=== PATIENT | female | born 1995 | race African-American/Black ===

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

== ENCOUNTER 2017-01-02 19:35 | Emergency (ER) | payer OTHER ==
[2017-01-02] MEDS ORDERED: Acetaminophen/Codeine 30-300mg Tablet ONE ×2 (19:53)
[2017-01-02 20:10] LABS: Pregnancy Test - Urine (BHCG) Negative (Negative); Pregu Control Background? CLEAR/WHITE (CLR/WHITE); Pregu Control Bar Appear? YES (CONTROL BAR)
== END 2017-01-02 20:24 | disposition home or self-care (01) ==
LOC: MADERS 19:35
DX: N92.0 Excessive and frequent menstruation with regular cycle (principal)
CPT/HCPCS: 81025; 99284

== ENCOUNTER 2017-01-03 21:27 | Emergency (ER) | payer OTHER ==
[~2017-01-03 21:27] MED LIST: Sodium Chloride 0.9% 1,000 ML BAG ONE
[2017-01-03] MEDS ORDERED: Ondansetron ODT 4 MG TAB ONE (21:44)
[2017-01-03 23:12] LABS: ALT (SGPT) 8 U/L (8-55); AST (SGOT) 23 U/L (5-30); Albumin 3.6 g/dL (3.5-5.0); Alkaline Phosphatase 63 U/L (40-150); Anion Gap 14 mmol/L (10-20); BUN (Urea Nitrogen) 11 mg/dL (8.4-21.0); Bilirubin, Total 0.3 mg/dL (0.2-1.2); Calc. Creatinine Clearance 0 mL/min (70-130); Calcium 8.4 mg/dL (7.8-10.44); Carbon Dioxide 20 mmol/L (22-29); Chloride 109 mmol/L (98-107); Estimated GFR-MDRD Greater than 90; Globulin 3.2 g/dL (2.4-3.5); Glucose 82 mg/dL (70-105); Lipase 17 U/L (8-78); Potassium 3.7 mmol/L (3.5-5.1); Protein, Total 6.8 g/dL (6.0-8.3); Sodium 139 mmol/L (136-145)
[2017-01-03] MEDS ORDERED: Promethazine HCl 25 MG/ML VIAL ONE (23:34)
[2017-01-03 23:36] LABS: Hemoglobin 6.7 g/dL (12.0-16.0); Mean Corpuscular HGB CONC 29.3 g/dL (32.0-36.0); Mean Corpuscular Hemoglobin 17.2 pg (25.0-35.0); Mean Corpuscular Volume 58.7 fL (77.0-87.0); Red Blood Cell (RBC) Count 3.91 mill/uL (4.00-5.20)
[2017-01-03 23:37] LABS: #Basophils 0.1 thou/uL (0.0-0.2); #Eosinphils 0.1 thou/uL (0.0-0.7); #Lymphocytes 2.2 thou/uL (1.20-3.40); #Monocytes 0.6 thou/uL (0.11-0.59); %Basophils 1.4 % (0.0-1.0); %Eosinophils 1.2 % (0.0-10.0); %Lymphocytes 27.1 % (28.0-48.0); %Monocytes 7.5 % (0.0-4.0); %Neutrophils 62.8 % (31.0-61.0); Anisocytosis MARKED = >30 cells (100X) (0-5/hpf); Mean Platelet Volume 8.8 fL (7.4-10.4); Platelet Count 271 thou/uL (130-400)
[2017-01-03 23:38] LABS: BHCG - Serum Negative (NEGATIVE); Hypochromia MARKED = >30 cells (100X) (0-5/hpf); Microcytosis MARKED = >30 cells (100X) (0-5/hpf); Poikilocytosis MODERATE=16-30 cells (100X) (0-5/hpf); Polychromasia SLIGHT = 2-3 cells (100X) (0-2/hpf); Pregs Control Background? CLEAR/WHITE (CLR/WHITE); Pregs Control Bar Appear? YES (CONTROL BAR); Target Cells MODERATE= 6-15 cells (100X) (0-1/hpf)
[2017-01-03 23:39] LABS: Bilirubin Negative (Negative); Blood, Urine Negative (Negative); Clarity Hazy (Clear); Glucose, Urine (Dipstick) Negative (Negative); Leukocyte Negative (Negative); Nitrite Negative (Negative); Protein, Urine (Dipstick) 30 mg/dL (Neg-Trace); RBC/HPF 0-3 HPF (0-3); Urobilinogen 0.2 mg/dL (0.2-1.0); pH, Urine 7.5 (5.0-9.0)
[2017-01-03 23:40] LABS: Bacteria/HPF Rare-Few HPF (None Seen); Renal Epithelial 0-3 HPF (0-3); Transitional Epithelial 0-3 HPF (0-3)
== END 2017-01-04 01:17 | disposition short-term general hospital (02) ==
LOC: MADERS 21:27
DX: R11.2 Nausea with vomiting, unspecified (principal); D64.9 Anemia, unspecified; Z79.899 Other long term (current) drug therapy
CPT/HCPCS: 36415; 80053; 81003; 81015; 83690; 84703; 85025; 96361; 96365; J2550; J7050; Q0162

== ENCOUNTER 2017-01-14 13:06 | Emergency (ER) | payer OTHER ==
[2017-01-14 14:08] LABS: BHCG - Serum Negative (NEGATIVE)
[2017-01-14 14:09] LABS: Pregs Control Background? CLEAR/WHITE (CLR/WHITE); Pregs Control Bar Appear? YES (CONTROL BAR)
[2017-01-14 14:17] LABS: ALT (SGPT) 11 U/L (8-55); AST (SGOT) 15 U/L (5-30); Albumin 4.2 g/dL (3.5-5.0); Alkaline Phosphatase 62 U/L (40-150); Anion Gap 11 mmol/L (10-20); BUN (Urea Nitrogen) 8 mg/dL (8.4-21.0); Bilirubin, Total 0.6 mg/dL (0.2-1.2); Calc. Creatinine Clearance 0 mL/min (70-130); Carbon Dioxide 23 mmol/L (22-29); Chloride 108 mmol/L (98-107); Estimated GFR-MDRD Greater than 90; Globulin 3.7 g/dL (2.4-3.5); Glucose 76 mg/dL (70-105); Potassium 4.1 mmol/L (3.5-5.1); Protein, Total 7.9 g/dL (6.0-8.3); Sodium 138 mmol/L (136-145)
[2017-01-14 14:18] LABS: #Basophils 0.1 thou/uL (0.0-0.2); #Eosinphils 0.1 thou/uL (0.0-0.7); #Lymphocytes 2.5 thou/uL (1.20-3.40); #Monocytes 0.9 thou/uL (0.11-0.59); #Neutrophils 4.4 thou/uL (1.40-6.50); %Basophils 1.1 % (0.0-1.0); %Eosinophils 0.9 % (0.0-10.0); %Lymphocytes 31.9 % (28.0-48.0); %Neutrophils 55.1 % (31.0-61.0); Anisocytosis MODERATE=16-30 cells (100X) (0-5/hpf); Hemoglobin 8.9 g/dL (12.0-16.0); Hypochromia SLIGHT = 6-15 cells (100X) (0-5/hpf); MDiff Complete? YES; Mean Corpuscular HGB CONC 28.9 g/dL (32.0-36.0); Mean Corpuscular Hemoglobin 18.3 pg (25.0-35.0); Mean Corpuscular Volume 63.3 fl (77.0-87.0); Microcytosis SLIGHT = 6-15 cells (100X) (0-5/hpf); Platelet Count 411 thou/uL (130-400); Polychromasia SLIGHT = 2-3 cells (100X) (0-2/hpf); Red Blood Cell (RBC) Count 4.87 mill/uL (4.00-5.20)
== END 2017-01-14 15:05 | disposition home or self-care (01) ==
LOC: MADERS 13:06
DX: N94.6 Dysmenorrhea, unspecified (principal); D64.9 Anemia, unspecified
CPT/HCPCS: 36415; 80053; 84703; 85025; 99284

== ENCOUNTER 2017-03-12 23:01 | Emergency (ER) | payer OTHER ==
[2017-03-12] MEDS ORDERED: Acetaminophen 500 MG TAB ONE (23:28)
[2017-03-12 23:51] LABS: Bilirubin Small (Negative); Blood, Urine Moderate (Negative); Clarity Clear (Clear); Glucose, Urine (Dipstick) Negative (Negative); Leukocyte Negative (Negative); Nitrite Negative (Negative); Protein, Urine (Dipstick) 30 mg/dL (Neg-Trace); Urobilinogen 0.2 mg/dL (0.2-1.0); pH, Urine 5.5 (5.0-9.0)
[2017-03-12 23:52] LABS: Pregnancy Test - Urine (BHCG) Negative (Negative)
[2017-03-12 23:53] LABS: Pregu Control Background? CLEAR/WHITE (CLR/WHITE); Pregu Control Bar Appear? YES (CONTROL BAR); Specific Gravity 1.034 (1.002-1.036)
[2017-03-12 23:56] LABS: Specific Gravity, Urine 1.034 (1.002-1.036)
[2017-03-12 23:57] LABS: Bacteria/HPF None Seen HPF (None Seen); RBC/HPF GREATER THAN 50-TNTC HPF (0-3); Squamous Epithelial 0-3 HPF (0-3); WBC/HPF 0-3 HPF (0-3)
[2017-03-13 00:03] LABS: #Basophils 0.1 thou/uL (0.0-0.2); #Eosinphils 0.1 thou/uL (0.0-0.7); #Lymphocytes 2.6 thou/uL (1.20-3.40); #Monocytes 0.6 thou/uL (0.11-0.59); #Neutrophils 3.3 thou/uL (1.40-6.50); %Basophils 1.4 % (0.0-1.0); %Eosinophils 1.7 % (0.0-10.0); %Lymphocytes 38.9 % (28.0-48.0); %Monocytes 9.2 % (0.0-4.0); %Neutrophils 48.9 % (31.0-61.0); Anisocytosis SLIGHT = 6-15 cells (100X) (0-5/hpf); Hemoglobin 8.4 g/dL (12.0-16.0); Hypochromia MODERATE=16-30 cells (100X) (0-5/hpf); Mean Corpuscular HGB CONC 29.2 g/dL (32.0-36.0); Mean Corpuscular Hemoglobin 18.4 pg (25.0-35.0); Mean Platelet Volume 8.1 fL (7.4-10.4); Ovalocytes SLIGHT = 2-5 cells (100X) (0-1/hpf); PLT Morphology Comment Appears Adequate; Platelet Count 275 thou/uL (130-400); Poikilocytosis SLIGHT = 6-15 cells (100X) (0-5/hpf); RBC Distribution Width 17.9 % (11.5-14.5); RBC Morphology Abnormal; Red Blood Cell (RBC) Count 4.54 mill/uL (4.00-5.20); White Blood Cell (WBC) Count 6.5 thou/uL (4.8-10.8)
[2017-03-13 00:04] LABS: MDiff Complete? YES
== END 2017-03-13 00:20 | disposition home or self-care (01) ==
LOC: MADERS 23:01
DX: D50.9 Iron deficiency anemia, unspecified (principal); N92.0 Excessive and frequent menstruation with regular cycle
CPT/HCPCS: 36415; 81003; 81015; 81025; 85025; 99284

== ENCOUNTER 2017-04-13 14:52 | Emergency (ER) | payer OTHER ==
[2017-04-13] MEDS ORDERED: Ondansetron ODT 4 MG TAB ONE (15:15)
[2017-04-13 15:35] LABS: Bilirubin Negative (Negative); Blood, Urine Large (Negative); Clarity Cloudy (Clear); Glucose, Urine (Dipstick) Negative (Negative); Leukocyte Negative (Negative); Nitrite Negative (Negative); Protein, Urine (Dipstick) 30 mg/dL (Neg-Trace); pH, Urine 8.5 (5.0-9.0)
[2017-04-13 15:40] LABS: Pregnancy Test - Urine (BHCG) Negative (Negative); Pregu Control Background? CLEAR/WHITE (CLR/WHITE); Pregu Control Bar Appear? YES (CONTROL BAR)
[2017-04-13 15:41] LABS: Bacteria/HPF 1+ HPF (None Seen); Crystals/HPF 2+ AMORPH PHOS HPF (Negative); Squamous Epithelial 0-3 HPF (0-3); WBC/HPF 0-3 HPF (0-3)
[2017-04-13 15:53] LABS: ALT (SGPT) 12 U/L (8-55); AST (SGOT) 13 U/L (5-30); Albumin 3.5 g/dL (3.5-5.0); Alkaline Phosphatase 49 U/L (40-150); Anion Gap 12 mmol/L (10-20); BUN (Urea Nitrogen) 7 mg/dL (8.4-21.0); Bilirubin, Total 0.3 mg/dL (0.2-1.2); Calc. Creatinine Clearance 0 mL/min (70-130); Calcium 8.6 mg/dL (7.8-10.44); Carbon Dioxide 24 mmol/L (22-29); Chloride 110 mmol/L (98-107); Estimated GFR-MDRD Greater than 90; Globulin 3.3 g/dL (2.4-3.5); Glucose 99 mg/dL (70-105); Protein, Total 6.8 g/dL (6.0-8.3); Sodium 142 mmol/L (136-145)
[2017-04-13 15:55] LABS: #Basophils 0.1 thou/uL (0.0-0.2); #Eosinphils 0.2 thou/uL (0.0-0.7); #Lymphocytes 1.7 thou/uL (1.20-3.40); #Monocytes 0.7 thou/uL (0.11-0.59); #Neutrophils 2.8 thou/uL (1.40-6.50); %Basophils 1.1 % (0.0-1.0); %Eosinophils 2.8 % (0.0-10.0); %Lymphocytes 31.5 % (28.0-48.0); %Monocytes 12.4 % (0.0-4.0); %Neutrophils 52.2 % (31.0-61.0); Anisocytosis MODERATE=16-30 cells (100X) (0-5/hpf); Hemoglobin 7.7 g/dL (12.0-16.0); Hypochromia MODERATE=16-30 cells (100X) (0-5/hpf); MDiff Complete? YES; Mean Corpuscular HGB CONC 28.2 g/dL (32.0-36.0); Mean Corpuscular Hemoglobin 17.4 pg (25.0-35.0); Mean Corpuscular Volume 61.7 fl (77.0-87.0); Mean Platelet Volume 6.9 fL (7.4-10.4); Microcytosis MODERATE=15-30 cells (100X) (0-5/hpf); PLT Morphology Comment Appears Adequate; Platelet Count 316 thou/uL (130-400); RBC Distribution Width 16.6 % (11.5-14.5); White Blood Cell (WBC) Count 5.4 thou/uL (4.8-10.8)
== END 2017-04-13 16:10 | disposition home or self-care (01) ==
LOC: MADERS 14:52
DX: K52.9 Noninfective gastroenteritis and colitis, unspecified (principal); D50.0 Iron deficiency anemia secondary to blood loss (chronic); N92.0 Excessive and frequent menstruation with regular cycle; Z79.899 Other long term (current) drug therapy
CPT/HCPCS: 36415; 80053; 81003; 81015; 81025; 85025; 99284; Q0162

== ENCOUNTER 2017-05-03 07:16 | Emergency (ER) | payer OTHER ==
[2017-05-03] MEDS ORDERED: Naproxen 500 MG TAB ONE (07:56)
[2017-05-03] MEDS ORDERED: Ondansetron ODT 4 MG TAB ONE (07:56)
== END 2017-05-03 08:05 | disposition home or self-care (01) ==
LOC: MADERS 07:16
DX: R11.2 Nausea with vomiting, unspecified (principal); R51 Headache; R59.0 Localized enlarged lymph nodes
CPT/HCPCS: 99283; Q0162

== ENCOUNTER 2017-05-06 14:26 | Emergency (ER) | payer OTHER | END 2017-05-06 15:50 | disposition left against medical advice (07) | LOC: MADERS 14:26 | DX: Z53.21 Procedure and treatment not carried out due to patient leaving prior to being seen by health care provider (principal) ==

== ENCOUNTER 2017-05-10 15:23 | Emergency (ER) | payer OTHER ==
[2017-05-10] MEDS ORDERED: Lidocaine 1% 20 ML MDV ONE (15:41)
[2017-05-10] MEDS ORDERED: cefTRIAXone\\ROCEPHIN 1 GM VIAL ONE (15:41)
[2017-05-10] MEDS ORDERED: Azithromycin 250 MG TAB ONE (15:41)
[2017-05-10 15:44] LABS: Pregnancy Test - Urine (BHCG) Negative (Negative); Pregu Control Background? CLEAR/WHITE (CLR/WHITE); Pregu Control Bar Appear? YES (CONTROL BAR)
== END 2017-05-10 15:50 | disposition home or self-care (01) ==
LOC: MADERS 15:23
DX: N76.0 Acute vaginitis (principal); D64.9 Anemia, unspecified
CPT/HCPCS: 81025; 96372; J0696; J2001

== ENCOUNTER 2017-05-19 20:01 | Emergency (ER) | payer OTHER ==
[2017-05-19 21:15] LABS: #Eosinphils 0.1 thou/uL (0.0-0.7); #Lymphocytes 2.6 thou/uL (1.20-3.40); #Monocytes 0.5 thou/uL (0.11-0.59); #Neutrophils 2.6 thou/uL (1.40-6.50); %Basophils 0.8 % (0.0-1.0); %Eosinophils 2.2 % (0.0-10.0); %Lymphocytes 44.3 % (28.0-48.0); %Neutrophils 43.7 % (31.0-61.0); Anisocytosis SLIGHT = 6-15 cells (100X) (0-5/hpf); Hemoglobin 8.3 g/dL (12.0-16.0); Hypochromia MODERATE=16-30 cells (100X) (0-5/hpf); MDiff Complete? YES; Mean Corpuscular HGB CONC 28.8 g/dL (32.0-36.0); Mean Corpuscular Hemoglobin 17.5 pg (25.0-35.0); Mean Corpuscular Volume 60.8 fl (77.0-87.0); Mean Platelet Volume 7.4 fL (7.4-10.4); Microcytosis MODERATE=15-30 cells (100X) (0-5/hpf); Ovalocytes SLIGHT = 2-5 cells (100X) (0-1/hpf); PLT Morphology Comment Appears Adequate; Platelet Count 377 thou/uL (130-400); Poikilocytosis SLIGHT = 6-15 cells (100X) (0-5/hpf); RBC Distribution Width 16.3 % (11.5-14.5); RBC Morphology Abnormal; Red Blood Cell (RBC) Count 4.72 mill/uL (4.00-5.20); Schistocytes SLIGHT = 2-5 cells (100X) (0-1/hpf); White Blood Cell (WBC) Count 5.9 thou/uL (4.8-10.8)
[2017-05-19 21:16] LABS: Anion Gap 13 mmol/L (10-20); BUN (Urea Nitrogen) 11 mg/dL (8.4-21.0); Calc. Creatinine Clearance 0 mL/min (70-130); Carbon Dioxide 24 mmol/L (22-29); Chloride 106 mmol/L (98-107); Estimated GFR-MDRD Greater than 90; Glucose 99 mg/dL (70-105); Potassium 4.1 mmol/L (3.5-5.1); Sodium 139 mmol/L (136-145)
[2017-05-19] MEDS ORDERED: Naproxen 500 MG TAB ONE (21:40)
[2017-05-19 22:12] LABS: BHCG - Serum Negative (NEGATIVE); Pregs Control Background? CLEAR/WHITE (CLR/WHITE); Pregs Control Bar Appear? YES (CONTROL BAR)
== END 2017-05-19 21:54 | disposition home or self-care (01) ==
LOC: MADERS 20:01
DX: N93.8 Other specified abnormal uterine and vaginal bleeding (principal); D64.9 Anemia, unspecified
CPT/HCPCS: 36415; 80048; 84703; 85025; 99284

== ENCOUNTER 2017-06-07 14:10 | Emergency (ER) | payer OTHER | END 2017-06-07 15:04 | disposition home or self-care (01) | LOC: MADERS 14:10 | DX: J01.90 Acute sinusitis, unspecified (principal); H65.03 Acute serous otitis media, bilateral; D64.9 Anemia, unspecified | CPT/HCPCS: 99282 ==

== ENCOUNTER 2017-06-08 09:57 | Emergency (ER) | payer OTHER | END 2017-06-08 10:42 | disposition home or self-care (01) | LOC: MADERS 09:57 | DX: H65.92 Unspecified nonsuppurative otitis media, left ear (principal); J02.9 Acute pharyngitis, unspecified | CPT/HCPCS: 99282 ==

== ENCOUNTER 2017-06-12 05:34 | Emergency (ER) | payer OTHER ==
[2017-06-12] MEDS ORDERED: Ondansetron ODT 4 MG TAB ONE (05:48)
[2017-06-12 06:04] LABS: Bilirubin Negative (Negative); Blood, Urine Negative (Negative); Clarity Clear (Clear); Glucose, Urine (Dipstick) Negative (Negative); Leukocyte Negative (Negative); Nitrite Negative (Negative); Protein, Urine (Dipstick) Negative (Neg-Trace)
[2017-06-12 06:07] LABS: Pregnancy Test - Urine (BHCG) Negative (Negative); Pregu Control Background? CLEAR/WHITE (CLR/WHITE); Pregu Control Bar Appear? YES (CONTROL BAR)
== END 2017-06-12 06:20 | disposition home or self-care (01) ==
LOC: MADERS 05:34
DX: B34.9 Viral infection, unspecified (principal); D50.0 Iron deficiency anemia secondary to blood loss (chronic)
CPT/HCPCS: 81003; 81025; 99284; Q0162

== ENCOUNTER 2017-06-23 15:11 | Emergency (ER) | payer OTHER ==
[2017-06-23 15:50] LABS: Pregnancy Test - Urine (BHCG) Negative (Negative); Pregu Control Background? CLEAR/WHITE (CLR/WHITE); Pregu Control Bar Appear? YES (CONTROL BAR)
== END 2017-06-23 16:12 | disposition home or self-care (01) ==
LOC: MADERS 15:11
DX: N93.9 Abnormal uterine and vaginal bleeding, unspecified (principal)
CPT/HCPCS: 81025; 99284

== ENCOUNTER 2017-07-07 10:32 | Emergency (ER) | payer OTHER, MEDICAID ==
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
== END 2017-07-07 12:30 | disposition home or self-care (01) ==
LOC: MADERS 10:32
DX: T07.XXXA Unspecified multiple injuries, initial encounter (principal); V89.2XXA Person injured in unspecified motor-vehicle accident, traffic, initial encounter
CPT/HCPCS: 70450; 72125

== ENCOUNTER 2017-07-18 21:44 | Emergency (ER) | payer OTHER ==
[2017-07-18 23:22] LABS: Bilirubin Negative (Negative); Blood, Urine Negative (Negative); Clarity Slightly Cloudy (Clear); Glucose, Urine (Dipstick) Negative (Negative); Leukocyte Small (Negative); Nitrite Negative (Negative); Protein, Urine (Dipstick) Negative (Neg-Trace); Urobilinogen 0.2 mg/dL (0.2-1.0)
[2017-07-18 23:39] LABS: Bacteria/HPF 2+ HPF (None Seen); RBC/HPF 0-3 HPF (0-3); Trichomonas/HPF 3+ HPF (None Seen); Yeast-All Forms 2+ HPF (None Seen)
[2017-07-18 23:40] LABS: Pregnancy Test - Urine (BHCG) POSITIVE (Negative); Pregu Control Background? CLEAR/WHITE (CLR/WHITE); Pregu Control Bar Appear? YES (CONTROL BAR)
[2017-07-18 23:41] LABS: Wet Prep Trichomonas Trichomonas PRESENT (None Seen)
[2017-07-18] MEDS ORDERED: metroNIDAZOLE 250 MG TAB ONE (23:53)
[2017-07-20 22:07] LABS: Chlamydia by PCR Not Detected (NotDetected); GC by PCR Not Detected (NotDetected)
== END 2017-07-18 23:55 | disposition home or self-care (01) ==
LOC: MADERS 21:44
DX: O98.311 Other infections with a predominantly sexual mode of transmission complicating pregnancy, first trimester (principal); A59.01 Trichomonal vulvovaginitis; O99.011 Anemia complicating pregnancy, first trimester
CPT/HCPCS: 81003; 81015; 81025; 87086; 87210; 87491; 87591; 99284

== ENCOUNTER 2017-07-21 11:42 | Emergency (ER) | payer OTHER ==
[2017-07-21 12:11] LABS: Bilirubin Negative (Negative); Blood, Urine Trace (Negative); Clarity Slightly Cloudy (Clear); Glucose, Urine (Dipstick) Negative (Negative); Leukocyte Moderate (Negative); Nitrite Negative (Negative); Protein, Urine (Dipstick) Negative (Neg-Trace)
[2017-07-21 12:34] LABS: Bacteria/HPF 2+ HPF (None Seen); Squamous Epithelial 21-50 HPF (0-3); WBC/HPF 21-50 HPF (0-3)
[2017-07-21 12:45] LABS: BHCG - Serum POSITIVE (NEGATIVE); Pregs Control Background? CLEAR/WHITE (CLR/WHITE); Pregs Control Bar Appear? YES (CONTROL BAR)
[2017-07-21 12:46] LABS: ALT (SGPT) 11 U/L (8-55); AST (SGOT) 13 U/L (5-30); Alkaline Phosphatase 63 U/L (40-150); Anion Gap 12 mmol/L (10-20); BUN (Urea Nitrogen) 7 mg/dL (8.4-21.0); Bilirubin, Total 0.6 mg/dL (0.2-1.2); Calc. Creatinine Clearance 0 mL/min (70-130); Calcium 9.1 mg/dL (7.8-10.44); Carbon Dioxide 23 mmol/L (22-29); Chloride 107 mmol/L (98-107); Estimated GFR-MDRD Greater than 90; Glucose 100 mg/dL (70-105); Potassium 4.1 mmol/L (3.5-5.1); Protein, Total 7.7 g/dL (6.0-8.3); Sodium 138 mmol/L (136-145)
[2017-07-21 12:48] LABS: #Basophils 0.1 thou/uL (0.0-0.2); #Lymphocytes 1.4 thou/uL (1.20-3.40); #Monocytes 0.5 thou/uL (0.11-0.59); #Neutrophils 2.4 thou/uL (1.40-6.50); %Basophils 1.3 % (0.0-1.0); %Eosinophils 1.1 % (0.0-10.0); %Lymphocytes 31.4 % (28.0-48.0); %Monocytes 10.5 % (0.0-4.0); %Neutrophils 55.6 % (31.0-61.0); Anisocytosis SLIGHT = 6-15 cells (100X) (0-5/hpf); Hemoglobin 8.5 g/dL (12.0-16.0); Hypochromia SLIGHT = 6-15 cells (100X) (0-5/hpf); MDiff Complete? YES; Mean Corpuscular Hemoglobin 17.6 pg (25.0-35.0); Mean Corpuscular Volume 60.9 fl (77.0-87.0); Ovalocytes SLIGHT = 2-5 cells (100X) (0-1/hpf); PLT Morphology Comment Appears Adequate; Platelet Count 383 thou/uL (130-400); Poikilocytosis SLIGHT = 6-15 cells (100X) (0-5/hpf); RBC Distribution Width 17.7 % (11.5-14.5); Red Blood Cell (RBC) Count 4.84 mill/uL (4.00-5.20); Schistocytes SLIGHT = 2-5 cells (100X) (0-1/hpf); White Blood Cell (WBC) Count 4.3 thou/uL (4.8-10.8)
[2017-07-21 13:01] LABS: Albumin 4.2 g/dL (3.5-5.0); Globulin 3.5 g/dL (2.4-3.5)
[2017-07-21] MEDS ORDERED: Nitrofurantoin Monohyd/M-Cryst 100 MG CAP ONE (13:08)
== END 2017-07-21 13:22 | disposition home or self-care (01) ==
LOC: MADERS 11:42
DX: O23.41 Unspecified infection of urinary tract in pregnancy, first trimester (principal); O99.011 Anemia complicating pregnancy, first trimester; Z3A.01 Less than 8 weeks gestation of pregnancy
CPT/HCPCS: 36415; 80053; 81001; 84702; 84703; 85025; 87086; 99284

== ENCOUNTER 2017-07-26 20:22 | Emergency (ER) | payer OTHER, MEDICAID | END 2017-07-26 22:15 | disposition left against medical advice (07) | LOC: MADERS 20:22 | DX: O99.89 Other specified diseases and conditions complicating pregnancy, childbirth and the puerperium (principal); R10.9 Unspecified abdominal pain; O99.011 Anemia complicating pregnancy, first trimester | CPT/HCPCS: 51701 ==

== ENCOUNTER 2017-08-05 04:28 | Emergency (ER) | payer OTHER ==
[2017-08-05] MEDS ORDERED: Ondansetron ODT 4 MG TAB ONE (04:57)
[2017-08-05 05:08] LABS: Bilirubin Negative (Negative); Blood, Urine Negative (Negative); Clarity Clear (Clear); Glucose, Urine (Dipstick) Negative (Negative); Leukocyte Small (Negative); Nitrite Negative (Negative); Protein, Urine (Dipstick) Negative (Neg-Trace); Urobilinogen 0.2 mg/dL (0.2-1.0)
[2017-08-05 05:09] LABS: Specific Gravity, Urine 1.026 (1.002-1.036)
[2017-08-05 05:19] LABS: Bacteria/HPF Rare-Few HPF (None Seen); RBC/HPF None Seen HPF (0-3); Squamous Epithelial 21-50 HPF (0-3)
[2017-08-05 05:20] LABS: Hyaline Casts/LPF NONE SEEN LPF (0-3 Hyaline)
== END 2017-08-05 05:40 | disposition home or self-care (01) ==
LOC: MADERS 04:28
DX: O21.9 Vomiting of pregnancy, unspecified (principal); O99.011 Anemia complicating pregnancy, first trimester; Z3A.01 Less than 8 weeks gestation of pregnancy
CPT/HCPCS: 81003; 81015; 99284; Q0162

== ENCOUNTER 2017-08-09 00:18 | Emergency (ER) | payer OTHER ==
[2017-08-09 07:05] LABS: White Blood Cell (WBC) Count 7.1 thou/uL (4.8-10.8)
[2017-08-09 07:06] LABS: Red Blood Cell (RBC) Count 4.92 mill/uL (4.00-5.20)
[2017-08-09 07:07] LABS: Mean Corpuscular HGB CONC 29.4 g/dL (32.0-36.0); Mean Corpuscular Hemoglobin 18.3 pg (25.0-35.0); Mean Corpuscular Volume 62.3 fL (77.0-87.0); Mean Platelet Volume 7.1 fL (7.4-10.4); Platelet Count 296 thou/uL (130-400); RBC Distribution Width 21.7 % (11.5-14.5)
[2017-08-09 07:08] LABS: #Basophils 0.1 thou/uL (0.0-0.2); #Eosinphils 0.1 thou/uL (0.0-0.7); #Lymphocytes 2.4 thou/uL (1.20-3.40); #Monocytes 0.6 thou/uL (0.11-0.59); %Eosinophils 1.3 % (0.0-10.0); %Lymphocytes 33.1 % (28.0-48.0); %Monocytes 8.8 % (0.0-4.0); %Neutrophils 55.7 % (31.0-61.0)
[2017-08-09 07:09] LABS: Anisocytosis SLIGHT = 6-15 cells (100X) (0-5/hpf); Hypochromia SLIGHT = 6-15 cells (100X) (0-5/hpf); Large Platelets SLIGHT; Macrocytosis SLIGHT = 6-15 cells (100X) (0-5/hpf); Microcytosis SLIGHT = 6-15 cells (100X) (0-5/hpf); PLT Morphology Comment Appears Adequate; Poikilocytosis SLIGHT = 6-15 cells (100X) (0-5/hpf)
[2017-08-09 07:17] LABS: Clarity Hazy (Clear); Specific Gravity, Urine 1.025 (1.005-1.030)
[2017-08-09 07:18] LABS: Bilirubin Negative (Negative); Blood, Urine Trace (Negative); Glucose, Urine (Dipstick) Negative (Negative); Leukocyte Moderate (Negative); Nitrite Negative (Negative); Protein, Urine (Dipstick) Negative (Neg-Trace)
[2017-08-09 07:19] LABS: Bacteria/HPF 2+ HPF (None Seen)
[2017-08-09 08:01] LABS: MDiff Complete? YES; RBC Morphology Abnormal
== END 2017-08-09 02:00 | disposition home or self-care (01) ==
LOC: MADERS 00:18
DX: O23.41 Unspecified infection of urinary tract in pregnancy, first trimester (principal); Z3A.01 Less than 8 weeks gestation of pregnancy
CPT/HCPCS: 36415; 81003; 81015; 84702; 85025; 86900; 86901; 99284

== ENCOUNTER 2017-08-14 21:41 | Emergency (ER) | payer OTHER, MEDICAID ==
[2017-08-14 22:06] LABS: Bilirubin Small (Negative); Blood, Urine Negative (Negative); Glucose, Urine (Dipstick) Negative (Negative); Leukocyte Small (Negative); Nitrite Negative (Negative); Protein, Urine (Dipstick) 30 mg/dL (Neg-Trace); Specific Gravity, Urine 1.025 (1.005-1.030); pH, Urine 6.5 (5.0-9.0)
[2017-08-14 22:12] LABS: Clarity Hazy (Clear)
[2017-08-14 22:13] LABS: RBC/HPF 0-3 HPF (0-3)
[2017-08-14 22:14] LABS: Bacteria/HPF Rare-Few HPF (None Seen)
[2017-08-14 22:27] LABS: #Basophils 0.1 thou/uL (0.0-0.2); #Lymphocytes 1.9 thou/uL (1.20-3.40); #Monocytes 0.8 thou/uL (0.11-0.59); #Neutrophils 7.9 thou/uL (1.40-6.50); %Basophils 0.9 % (0.0-1.0); %Eosinophils 0.3 % (0.0-10.0); %Lymphocytes 17.5 % (28.0-48.0); %Monocytes 7.2 % (0.0-4.0); %Neutrophils 74.1 % (31.0-61.0); Anisocytosis SLIGHT = 6-15 cells (100X) (0-5/hpf); Elliptocytes SLIGHT = 2-5 cells (100X) (0-1/hpf); Hemoglobin 10.1 g/dL (12.0-16.0); Hypochromia MODERATE=16-30 cells (100X) (0-5/hpf); MDiff Complete? YES; Mean Corpuscular HGB CONC 30.4 g/dL (32.0-36.0); Mean Corpuscular Hemoglobin 19.1 pg (25.0-35.0); Mean Platelet Volume 8.5 fL (7.4-10.4); Microcytosis SLIGHT = 6-15 cells (100X) (0-5/hpf); PLT Morphology Comment Appears Adequate; Platelet Count 311 thou/uL (130-400); Poikilocytosis SLIGHT = 6-15 cells (100X) (0-5/hpf); RBC Distribution Width 21.9 % (11.5-14.5); RBC Morphology Abnormal; Red Blood Cell (RBC) Count 5.27 mill/uL (4.00-5.20); Target Cells SLIGHT = 2-5 cells (100X) (0-1/hpf); White Blood Cell (WBC) Count 10.7 thou/uL (4.8-10.8)
[2017-08-14 22:31] LABS: ALT (SGPT) 11 U/L (8-55); AST (SGOT) 18 U/L (5-30); Albumin 4.4 g/dL (3.5-5.0); Alkaline Phosphatase 60 U/L (40-150); Anion Gap 15 mmol/L (10-20); BUN (Urea Nitrogen) 7 mg/dL (8.4-21.0); Bilirubin, Total 0.6 mg/dL (0.2-1.2); Calc. Creatinine Clearance 0 mL/min (70-130); Calcium 9.6 mg/dL (7.8-10.44); Carbon Dioxide 21 mmol/L (22-29); Chloride 103 mmol/L (98-107); Estimated GFR-MDRD Greater than 90; Globulin 3.7 g/dL (2.4-3.5); Glucose 87 mg/dL (70-105); Potassium 3.9 mmol/L (3.5-5.1); Protein, Total 8.1 g/dL (6.0-8.3); Sodium 135 mmol/L (136-145)
[2017-08-14] MEDS ORDERED: Metoclopramide HCl 10 MG/2 ML VIAL ONE (22:46)
== END 2017-08-14 23:45 | disposition home or self-care (01) ==
LOC: MADERS 21:41
DX: O21.0 Mild hyperemesis gravidarum (principal); O99.011 Anemia complicating pregnancy, first trimester; Z3A.08 8 weeks gestation of pregnancy
CPT/HCPCS: 80053; 81003; 81015; 85025; 96361; 96374; J2765; J7050

== ENCOUNTER 2017-11-08 11:03 | Emergency (ER) | payer OTHER ==
[2017-11-08 12:08] LABS: Bilirubin Negative (Negative); Blood, Urine Negative (Negative); Clarity Clear (Clear); Glucose, Urine (Dipstick) Negative (Negative); Leukocyte Negative (Negative); Nitrite Negative (Negative); Protein, Urine (Dipstick) Negative (Neg-Trace); Urobilinogen 0.2 mg/dL (0.2-1.0)
[2017-11-08 12:11] LABS: Pregnancy Test - Urine (BHCG) Negative (Negative); Pregu Control Background? CLEAR/WHITE (CLR/WHITE); Pregu Control Bar Appear? YES (CONTROL BAR)
[2017-11-08 12:17] LABS: RBC/HPF None Seen HPF (0-3)
[2017-11-08 12:18] LABS: Bacteria/HPF Rare-Few HPF (None Seen); Trichomonas/HPF Rare HPF (None Seen); WBC/HPF 0-3 HPF (0-3)
[2017-11-08] MEDS ORDERED: Fluconazole 100 MG TAB ONE (12:51)
[2017-11-08] MEDS ORDERED: metroNIDAZOLE 250 MG TAB ONE (12:51)
[2017-11-08] MEDS ORDERED: Doxycycline 100 MG CAP ONE (12:51)
== END 2017-11-08 13:02 | disposition home or self-care (01) ==
LOC: MADERS 11:03
DX: N76.0 Acute vaginitis (principal); D50.0 Iron deficiency anemia secondary to blood loss (chronic)
CPT/HCPCS: 81001; 81025; 87086; 99283

== ENCOUNTER 2017-11-22 17:25 | Emergency (ER) | payer OTHER ==
[2017-11-22 17:45] LABS: Bilirubin Negative (Negative); Blood, Urine Negative (Negative); Clarity Hazy (Clear); Glucose, Urine (Dipstick) Negative (Negative); Leukocyte Small (Negative); Nitrite Negative (Negative); Protein, Urine (Dipstick) Negative (Neg-Trace); Specific Gravity, Urine 1.025 (1.005-1.030)
[2017-11-22 17:52] LABS: Bacteria/HPF 2+ HPF (None Seen); RBC/HPF 0-3 HPF (0-3); Trichomonas/HPF Rare HPF (None Seen)
[2017-11-22 17:53] LABS: Pregnancy Test - Urine (BHCG) Negative (Negative); Pregu Control Background? CLEAR/WHITE (CLR/WHITE); Pregu Control Bar Appear? YES (CONTROL BAR); Specific Gravity 1.025 (1.002-1.036)
== END 2017-11-22 18:17 | disposition home or self-care (01) ==
LOC: MADERS 17:25
DX: S39.012A Strain of muscle, fascia and tendon of lower back, initial encounter (principal); N30.00 Acute cystitis without hematuria; A59.01 Trichomonal vulvovaginitis; D64.9 Anemia, unspecified; X58.XXXA Exposure to other specified factors, initial encounter
CPT/HCPCS: 81003; 81015; 81025; 87086; 99283

== ENCOUNTER 2017-12-10 13:40 | Emergency (ER) | payer OTHER ==
[2017-12-10] MEDS ORDERED: Ibuprofen 800 MG TAB ONE (13:57)
[2017-12-10] MEDS ORDERED: Amoxicillin/Potassium Clav 875 MG TAB ONE (14:23)
== END 2017-12-10 14:25 | disposition home or self-care (01) ==
LOC: MADERS 13:40
DX: J20.9 Acute bronchitis, unspecified (principal); D64.9 Anemia, unspecified
CPT/HCPCS: 99283

== ENCOUNTER 2017-12-22 14:13 | Emergency (ER) | payer OTHER ==
[2017-12-22 15:43] LABS: #Eosinphils 0.1 thou/uL (0.0-0.7); #Monocytes 0.9 thou/uL (0.11-0.59); #Neutrophils 5.2 thou/uL (1.40-6.50); %Basophils 0.5 % (0.0-1.0); %Eosinophils 0.7 % (0.0-10.0); %Lymphocytes 24.3 % (28.0-48.0); %Monocytes 10.7 % (0.0-4.0); %Neutrophils 63.8 % (31.0-61.0); Hemoglobin 9.2 g/dL (12.0-16.0); Hypochromia SLIGHT = 6-15 cells (100X) (0-5/hpf); MDiff Complete? YES; Mean Corpuscular Hemoglobin 18.6 pg (25.0-35.0); Mean Corpuscular Volume 64.1 fL (78.0-98.0); Mean Platelet Volume 6.4 fL (7.4-10.4); PLT Morphology Comment Appears Adequate; Platelet Count 288 thou/uL (130-400); RBC Distribution Width 18.3 % (11.5-14.5); Red Blood Cell (RBC) Count 4.96 mill/uL (4.00-5.20); White Blood Cell (WBC) Count 8.1 thou/uL (4.8-10.8)
[2017-12-22 15:49] LABS: ALT (SGPT) 8 U/L (8-55); AST (SGOT) 15 U/L (5-34); Alkaline Phosphatase 67 U/L (40-150); Anion Gap 13 mmol/L (10-20); BHCG - Serum Negative (NEGATIVE); BUN (Urea Nitrogen) 8 mg/dL (7.0-18.7); Bilirubin, Total 0.7 mg/dL (0.2-1.2); Calc. Creatinine Clearance 0 mL/min (70-130); Calcium 9.2 mg/dL (7.8-10.44); Carbon Dioxide 26 mmol/L (22-29); Chloride 107 mmol/L (98-107); Estimated GFR-MDRD 76; Globulin 3.5 g/dL (2.4-3.5); Glucose 77 mg/dL (70-105); Pregs Control Background? CLEAR/WHITE (CLR/WHITE); Pregs Control Bar Appear? YES (CONTROL BAR); Protein, Total 7.5 g/dL (6.0-8.3); Sodium 142 mmol/L (136-145)
== END 2017-12-22 16:10 | disposition home or self-care (01) ==
LOC: MADERS 14:13
DX: N93.8 Other specified abnormal uterine and vaginal bleeding (principal); D50.9 Iron deficiency anemia, unspecified
CPT/HCPCS: 36415; 80053; 84703; 85025; 99284

== ENCOUNTER 2018-02-22 20:45 | Emergency (ER) | payer OTHER ==
[2018-02-22 21:18] LABS: Bilirubin Negative (Negative); Blood, Urine Negative (Negative); Clarity Clear (Clear); Glucose, Urine (Dipstick) Negative (Negative); Leukocyte Negative (Negative); Nitrite Positive (Negative); Protein, Urine (Dipstick) Negative (Neg-Trace); pH, Urine 7.5 (5.0-9.0)
[2018-02-22 21:20] LABS: Pregnancy Test - Urine (BHCG) Negative (Negative); Pregu Control Background? CLEAR/WHITE (CLR/WHITE); Pregu Control Bar Appear? YES (CONTROL BAR)
[2018-02-22 21:25] LABS: RBC/HPF 0-3 HPF (0-3)
[2018-02-22 21:26] LABS: Bacteria/HPF 1+ HPF (None Seen); Squamous Epithelial 0-3 HPF (0-3); WBC/HPF 0-3 HPF (0-3)
[2018-02-22 21:54] LABS: #Basophils 0.1 thou/uL (0.0-0.2); #Eosinphils 0.1 thou/uL (0.0-0.7); #Lymphocytes 2.7 thou/uL (1.20-3.40); #Monocytes 0.8 thou/uL (0.11-0.59); #Neutrophils 6.5 thou/uL (1.40-6.50); %Eosinophils 0.9 % (0.0-10.0); %Lymphocytes 26.7 % (28.0-48.0); %Monocytes 7.9 % (0.0-4.0); %Neutrophils 63.5 % (31.0-61.0); Anisocytosis SLIGHT = 6-15 cells (100X) (0-5/hpf); Hemoglobin 9.5 g/dL (12.0-16.0); Hypochromia MODERATE=16-30 cells (100X) (0-5/hpf); MDiff Complete? YES; Macrocytosis SLIGHT = 6-15 cells (100X) (0-5/hpf); Mean Corpuscular HGB CONC 29.5 g/dL (32.0-36.0); Mean Corpuscular Volume 64.5 fL (78.0-98.0); Mean Platelet Volume 7.3 fL (7.4-10.4); Microcytosis SLIGHT = 6-15 cells (100X) (0-5/hpf); PLT Morphology Comment Appears Adequate; Platelet Count 373 thou/uL (130-400); Poikilocytosis SLIGHT = 6-15 cells (100X) (0-5/hpf); RBC Distribution Width 16.4 % (11.5-14.5); RBC Morphology Abnormal; Red Blood Cell (RBC) Count 5.02 mill/uL (4.00-5.20); White Blood Cell (WBC) Count 10.2 thou/uL (4.8-10.8)
[2018-02-22 21:57] LABS: ALT (SGPT) 10 U/L (8-55); AST (SGOT) 17 U/L (5-34); Albumin 3.8 g/dL (3.5-5.0); Alkaline Phosphatase 63 U/L (40-150); Anion Gap 11 mmol/L (10-20); BUN (Urea Nitrogen) 9 mg/dL (7.0-18.7); Bilirubin, Total 0.3 mg/dL (0.2-1.2); Calc. Creatinine Clearance 0 mL/min (70-130); Calcium 8.6 mg/dL (7.8-10.44); Carbon Dioxide 24 mmol/L (22-29); Chloride 108 mmol/L (98-107); Estimated GFR-MDRD Greater than 90; Globulin 3.5 g/dL (2.4-3.5); Glucose 95 mg/dL (70-105); Lipase 34 U/L (8-78); Protein, Total 7.3 g/dL (6.0-8.3); Sodium 139 mmol/L (136-145)
== END 2018-02-22 22:42 | disposition home or self-care (01) ==
LOC: MADERS 20:45
DX: R10.9 Unspecified abdominal pain (principal); D50.0 Iron deficiency anemia secondary to blood loss (chronic)
CPT/HCPCS: 36415; 80053; 81001; 81025; 83690; 85025; 99284

== ENCOUNTER 2018-06-18 14:37 | Emergency (ER) | payer OTHER ==
[2018-06-18] MEDS ORDERED: Metoclopramide HCl 10 MG/2 ML VIAL ONE (15:37)
[2018-06-18] MEDS ORDERED: Ketorolac Tromethamine 30 MG/ML VIAL ONE (15:37)
[2018-06-18] MEDS ORDERED: predniSONE 20 MG TAB ONE (15:37)
[2018-06-18 15:46] LABS: Bilirubin Negative (Negative); Blood, Urine Trace (Negative); Glucose, Urine (Dipstick) Negative (Negative); Leukocyte Small (Negative); Nitrite Negative (Negative); Protein, Urine (Dipstick) Negative (Neg-Trace); Urobilinogen 0.2 mg/dL (0.2-1.0)
[2018-06-18 15:54] LABS: Clarity Cloudy (Clear); Pregnancy Test - Urine (BHCG) Negative (Negative); Pregu Control Background? CLEAR/WHITE (CLR/WHITE); Pregu Control Bar Appear? YES (CONTROL BAR)
[2018-06-18 15:56] LABS: Bacteria/HPF Rare-Few HPF (None Seen); RBC/HPF 0-3 HPF (0-3); Trichomonas/HPF Rare HPF (None Seen)
[2018-06-18 16:12] LABS: #Basophils 0.1 thou/uL (0.0-0.2); #Eosinphils 0.1 thou/uL (0.0-0.7); #Lymphocytes 2.1 thou/uL (1.20-3.40); #Monocytes 0.8 thou/uL (0.11-0.59); #Neutrophils 4.8 thou/uL (1.40-6.50); %Basophils 0.9 % (0.0-1.0); %Eosinophils 1.1 % (0.0-10.0); %Lymphocytes 26.8 % (28.0-48.0); %Neutrophils 61.1 % (31.0-61.0); ALT (SGPT) 13 U/L (8-55); AST (SGOT) 14 U/L (5-34); Albumin 4.1 g/dL (3.5-5.0); Alkaline Phosphatase 85 U/L (40-150); Anion Gap 11 mmol/L (10-20); BUN (Urea Nitrogen) 13 mg/dL (7.0-18.7); Bilirubin, Total 0.3 mg/dL (0.2-1.2); Calc. Creatinine Clearance 0 mL/min (70-130); Calcium 9.2 mg/dL (7.8-10.44); Carbon Dioxide 26 mmol/L (22-29); Chloride 106 mmol/L (98-107); Estimated GFR-MDRD Greater than 90; Globulin 3.4 g/dL (2.4-3.5); Glucose 87 mg/dL (70-105); Hemoglobin 9.8 g/dL (12.0-16.0); Lipase 31 U/L (8-78); Mean Corpuscular HGB CONC 29.3 g/dL (32.0-36.0); Mean Corpuscular Hemoglobin 20.1 pg (25.0-35.0); Mean Corpuscular Volume 68.8 fL (78.0-98.0); Mean Platelet Volume 5.8 fL (7.4-10.4); Platelet Count 345 thou/uL (130-400); Potassium 4.4 mmol/L (3.5-5.1); Protein, Total 7.5 g/dL (6.0-8.3); RBC Distribution Width 16.6 % (11.5-14.5); Red Blood Cell (RBC) Count 4.86 mill/uL (4.00-5.20); Sodium 139 mmol/L (136-145); White Blood Cell (WBC) Count 7.9 thou/uL (4.8-10.8)
[2018-06-18 16:18] LABS: Anisocytosis SLIGHT = 6-15 cells (100X) (0-5/hpf); Microcytosis SLIGHT = 6-15 cells (100X) (0-5/hpf); Polychromasia SLIGHT = 2-3 cells (100X) (0-2/hpf)
[2018-06-18 16:19] LABS: Hypochromia SLIGHT = 6-15 cells (100X) (0-5/hpf)
[2018-06-18] MEDS ORDERED: metroNIDAZOLE 250 MG TAB ONE ×2 (17:10→17:16)
== END 2018-06-18 17:15 | disposition home or self-care (01) ==
LOC: MADERS 14:37
DX: R51 Headache (principal); A59.01 Trichomonal vulvovaginitis
CPT/HCPCS: 36415; 80053; 81003; 81015; 81025; 83690; 85025; 87077; 87086; 96372; J1885; J2765

== ENCOUNTER 2018-07-16 08:22 | Emergency (ER) | payer OTHER ==
[2018-07-16] MEDS ORDERED: Clindamycin 150 MG CAP ONE (10:42)
== END 2018-07-16 10:40 | disposition home or self-care (01) ==
LOC: MADERS 08:22
DX: N75.0 Cyst of Bartholin's gland (principal); D64.9 Anemia, unspecified
CPT/HCPCS: 99283

== ENCOUNTER 2018-07-26 19:24 | Emergency (ER) | payer OTHER ==
[2018-07-26 20:20] LABS: INR-International Normal Ratio 1.1; Prothrombin Time 14.2 SEC (12.0-14.7)
[2018-07-26 20:23] LABS: BHCG - Serum Negative (NEGATIVE); Pregs Control Background? CLEAR/WHITE (CLR/WHITE); Pregs Control Bar Appear? YES (CONTROL BAR)
[2018-07-26 20:26] LABS: ALT (SGPT) 10 U/L (8-55); AST (SGOT) 14 U/L (5-34); Albumin 3.8 g/dL (3.5-5.0); Alkaline Phosphatase 71 U/L (40-150); Anion Gap 12 mmol/L (10-20); BUN (Urea Nitrogen) 9 mg/dL (7.0-18.7); Bilirubin, Total 0.3 mg/dL (0.2-1.2); Calc. Creatinine Clearance 0 mL/min (70-130); Calcium 9.1 mg/dL (7.8-10.44); Carbon Dioxide 26 mmol/L (22-29); Chloride 107 mmol/L (98-107); Estimated GFR-MDRD Greater than 90; Globulin 3.5 g/dL (2.4-3.5); Glucose 112 mg/dL (70-105); Potassium 4.1 mmol/L (3.5-5.1); Protein, Total 7.3 g/dL (6.0-8.3); Sodium 141 mmol/L (136-145)
[2018-07-26 20:31] LABS: #Basophils 0.1 thou/uL (0.0-0.2); #Eosinphils 0.1 thou/uL (0.0-0.7); #Monocytes 0.5 thou/uL (0.11-0.59); #Neutrophils 6.4 thou/uL (1.40-6.50); %Basophils 0.7 % (0.0-1.0); %Eosinophils 0.7 % (0.0-10.0); %Lymphocytes 22.2 % (28.0-48.0); %Monocytes 5.8 % (0.0-4.0); %Neutrophils 70.7 % (31.0-61.0); Anisocytosis SLIGHT = 6-15 cells (100X) (0-5/hpf); Hypochromia MODERATE=16-30 cells (100X) (0-5/hpf); MDiff Complete? YES; Mean Corpuscular HGB CONC 29.1 g/dL (32.0-36.0); Mean Corpuscular Volume 65.2 fL (78.0-98.0); Mean Platelet Volume 6.9 fL (7.4-10.4); Microcytosis MODERATE=15-30 cells (100X) (0-5/hpf); Platelet Count 363 thou/uL (130-400); Platelet Morphology Comment Appears Adequate; Poikilocytosis SLIGHT = 6-15 cells (100X) (0-5/hpf); RBC Distribution Width 16.2 % (11.5-14.5); RBC Morphology Abnormal; Red Blood Cell (RBC) Count 4.74 mill/uL (4.00-5.20)
== END 2018-07-26 21:06 | disposition home or self-care (01) ==
LOC: MADERS 19:24
DX: N94.6 Dysmenorrhea, unspecified (principal); D64.9 Anemia, unspecified
CPT/HCPCS: 36415; 80053; 84703; 85025; 85610; 99284

== ENCOUNTER 2018-09-20 06:27 | Emergency (ER) | payer OTHER, SELFPAY ==
[2018-09-20 07:24] LABS: Bilirubin Negative (Negative); Blood, Urine Negative (Negative); Clarity Clear (Clear); Glucose, Urine (Dipstick) Negative (Negative); Leukocyte Negative (Negative); Nitrite Negative (Negative); Protein, Urine (Dipstick) Negative (Neg-Trace); Specific Gravity, Urine 1.025 (1.005-1.030); Urobilinogen 0.2 mg/dL (0.2-1.0); pH, Urine 5.5 (5.0-9.0)
[2018-09-20 07:26] LABS: Pregnancy Test - Urine (BHCG) Negative (Negative); Pregu Control Background? CLEAR/WHITE (CLR/WHITE); Pregu Control Bar Appear? YES (CONTROL BAR); Specific Gravity 1.025 (1.002-1.036)
[2018-09-20] MEDS ORDERED: Metoclopramide HCl 10 MG/2 ML VIAL ONE (07:44)
[2018-09-20] MEDS ORDERED: predniSONE 20 MG TAB ONE (07:44)
[2018-09-20] MEDS ORDERED: Ketorolac Tromethamine 60 MG/2 ML VIAL ONE (07:44)
[2018-09-20] MEDS ORDERED: methylPREDNISolone Sod Succ/PF 125 MG/2 ML VIAL ONE (07:44)
== END 2018-09-20 08:15 | disposition home or self-care (01) ==
LOC: MADERS 06:27
DX: R51 Headache (principal); R11.0 Nausea
CPT/HCPCS: 81003; 81025; 96372; J1885; J2765; J2930; J7512

== ENCOUNTER 2018-11-14 01:26 | Emergency (ER) | payer BC, OTHER ==
[2018-11-14] MEDS ORDERED: Penicillin V Potassium 250 MG TAB ONE (01:52)
[2018-11-14] MEDS ORDERED: Ibuprofen 400 MG TAB ONE (01:52)
== END 2018-11-14 01:54 | disposition home or self-care (01) ==
LOC: MADERS 01:26
DX: K04.7 Periapical abscess without sinus (principal); D50.0 Iron deficiency anemia secondary to blood loss (chronic)
CPT/HCPCS: 99283

== ENCOUNTER 2018-11-15 21:36 | Emergency (ER) | payer OTHER ==
[2018-11-15] MEDS ORDERED: traMADol HCl 50 MG TAB ONE (22:11)
[2018-11-15] MEDS ORDERED: Azithromycin 250 MG TAB ONE (22:11)
== END 2018-11-15 22:19 | disposition home or self-care (01) ==
LOC: MADERS 21:36
DX: K04.7 Periapical abscess without sinus (principal); K03.81 Cracked tooth; K02.9 Dental caries, unspecified; D64.9 Anemia, unspecified
CPT/HCPCS: 99282

== ENCOUNTER 2018-12-24 08:26 | Emergency (ER) | payer OTHER ==
[2018-12-24 09:02] LABS: Bilirubin Negative (Negative); Blood, Urine Negative (Negative); Clarity Slightly Cloudy (Clear); Glucose, Urine (Dipstick) Negative (Negative); Leukocyte Negative (Negative); Nitrite Negative (Negative); Protein, Urine (Dipstick) Negative (Neg-Trace); Urobilinogen 0.2 mg/dL (Less than 2)
[2018-12-24 09:05] LABS: Pregnancy Test - Urine (BHCG) Negative (Negative)
[2018-12-24 09:06] LABS: Pregu Control Background? CLEAR/WHITE (CLR/WHITE); Pregu Control Bar Appear? YES (CONTROL BAR)
== END 2018-12-24 09:25 | disposition home or self-care (01) ==
LOC: MADERS 08:26
DX: R11.2 Nausea with vomiting, unspecified (principal)
CPT/HCPCS: 81003; 81025; 99284

== ENCOUNTER 2018-12-25 21:00 | Emergency (ER) | payer OTHER ==
[2018-12-25] MEDS ORDERED: Ibuprofen 800 MG TAB ONE (21:23)
== END 2018-12-25 21:31 | disposition home or self-care (01) ==
LOC: MADERS 21:00
DX: N94.6 Dysmenorrhea, unspecified (principal); D50.0 Iron deficiency anemia secondary to blood loss (chronic)
CPT/HCPCS: 99283

== ENCOUNTER 2019-08-30 04:21 | Emergency (ER) | payer OTHER, BC ==
[2019-08-30] MEDS ORDERED: Azithromycin 250 MG TAB ONE (04:47)
[2019-08-30] MEDS ORDERED: Ibuprofen 800 MG TAB ONE (04:47)
== END 2019-08-30 04:53 | disposition home or self-care (01) ==
LOC: MADERS 04:21
DX: J02.0 Streptococcal pharyngitis (principal); D64.9 Anemia, unspecified
CPT/HCPCS: 99283

== ENCOUNTER 2019-11-26 23:39 | Emergency (ER) | payer OTHER ==
[2019-11-27 00:34] LABS: Hemoglobin 7.9 g/dL (12.0-16.0); Mean Corpuscular HGB CONC 28.4 g/dL (32.0-36.0); Mean Corpuscular Hemoglobin 17.2 pg (27.0-31.0); Mean Corpuscular Volume 60.5 fL (78.0-98.0); Mean Platelet Volume 6.7 fL (7.4-10.4); Platelet Count 432 thou/uL (130-400); RBC Distribution Width 16.7 % (11.5-14.5); White Blood Cell (WBC) Count 8.8 thou/uL (4.8-10.8)
[2019-11-27 00:37] LABS: BHCG - Serum Negative (NEGATIVE); Pregs Control Background? CLEAR/WHITE (CLR/WHITE); Pregs Control Bar Appear? YES (CONTROL BAR)
[2019-11-27 00:44] LABS: Anion Gap 14 mmol/L (10-20); BUN (Urea Nitrogen) 12 mg/dL (7.0-18.7); Calc. Creatinine Clearance 0 mL/min (70-130); Calcium 8.4 mg/dL (7.8-10.44); Carbon Dioxide 22 mmol/L (22-29); Chloride 107 mmol/L (98-107); Estimated GFR-MDRD Greater than 90; Glucose 120 mg/dL (70-105); Potassium 3.9 mmol/L (3.5-5.1); Sodium 139 mmol/L (136-145)
[2019-11-27 00:50] LABS: #Basophils 0.1 thou/uL (0.0-0.2); #Eosinphils 0.1 thou/uL (0.0-0.7); #Lymphocytes 2.7 thou/uL (1.20-3.40); #Monocytes 0.6 thou/uL (0.11-0.59); #Neutrophils 5.4 thou/uL (1.40-6.50); %Basophils 0.8 % (0.0-1.0); %Eosinophils 1.3 % (0.0-10.0); %Lymphocytes 30.5 % (21.0-51.0); %Monocytes 6.8 % (0.0-10.0); %Neutrophils 60.7 % (42.0-75.0); Hypochromia MODERATE=16-30 cells (100X) (0-5/hpf); MDiff Complete? YES; Microcytosis MODERATE=15-30 cells (100X) (0-5/hpf); Ovalocytes SLIGHT = 2-5 cells (100X) (0-1/hpf); Platelet Morphology Comment Appears Adequate; Reflex for Review?? NO; Spherocytes SLIGHT = 1-5 cells (100X) (None Seen); Target Cells SLIGHT = 2-5 cells (100X) (0-1/hpf)
[2019-11-27] MEDS ORDERED: Sodium Chloride 0.9% 500 ML ONE (01:04)
== END 2019-11-27 01:42 | disposition home or self-care (01) ==
LOC: MADERS 23:39
DX: N92.0 Excessive and frequent menstruation with regular cycle (principal); D50.0 Iron deficiency anemia secondary to blood loss (chronic)
CPT/HCPCS: 80048; 84703; 85025; 86850; 86900; 86901; 87480; 87491; 87510; 87591; 87660; 99284; J7030

== ENCOUNTER 2019-12-29 09:00 | Observation (INO) | payer SELFPAY ==
[2019-12-29 10:15] LABS: #Basophils 0.1 thou/uL (0.0-0.2); #Eosinphils 0.1 thou/uL (0.0-0.7); #Lymphocytes 1.8 thou/uL (1.20-3.40); #Monocytes 0.6 thou/uL (0.11-0.59); #Neutrophils 4.1 thou/uL (1.40-6.50); %Basophils 0.8 % (0.0-1.0); %Eosinophils 1.6 % (0.0-10.0); %Lymphocytes 27.2 % (21.0-51.0); %Monocytes 8.7 % (0.0-10.0); %Neutrophils 61.7 % (42.0-75.0); Anisocytosis SLIGHT = 6-15 cells (100X) (0-5/hpf); Hemoglobin 7.2 g/dL (12.0-16.0); Hypochromia MODERATE=16-30 cells (100X) (0-5/hpf); MDiff Complete? YES; Mean Corpuscular HGB CONC 27.4 g/dL (32.0-36.0); Mean Corpuscular Hemoglobin 16.3 pg (27.0-31.0); Mean Corpuscular Volume 59.4 fL (78.0-98.0); Mean Platelet Volume 6.8 fL (7.4-10.4); Microcytosis MODERATE=15-30 cells (100X) (0-5/hpf); Ovalocytes SLIGHT = 2-5 cells (100X) (0-1/hpf); Platelet Count 385 thou/uL (130-400); Poikilocytosis SLIGHT = 6-15 cells (100X) (0-5/hpf); RBC Distribution Width 16.3 % (11.5-14.5); Red Blood Cell (RBC) Count 4.43 mill/uL (4.20-5.40); Tear Drops SLIGHT = 2-5 cells (100X) (0-1/hpf); White Blood Cell (WBC) Count 6.6 thou/uL (4.8-10.8)
[2019-12-29 10:18] LABS: ALT (SGPT) 9 U/L (8-55); AST (SGOT) 11 U/L (5-34); Albumin 3.6 g/dL (3.5-5.0); Alkaline Phosphatase 71 U/L (40-110); Anion Gap 12 mmol/L (10-20); BUN (Urea Nitrogen) 10 mg/dL (7.0-18.7); Bilirubin, Total 0.3 mg/dL (0.2-1.2); Calc. Creatinine Clearance 0 mL/min (70-130); Calcium 8.3 mg/dL (7.8-10.44); Carbon Dioxide 22 mmol/L (22-29); Chloride 109 mmol/L (98-107); Estimated GFR-MDRD Greater than 90; Globulin 3.1 g/dL (2.4-3.5); Glucose 105 mg/dL (70-105); Potassium 3.5 mmol/L (3.5-5.1); Protein, Total 6.7 g/dL (6.0-8.3); Sodium 139 mmol/L (136-145)
[2019-12-29 10:24] LABS: Pregnancy Test - Urine (BHCG) Negative (Negative); Specific Gravity 1.024 (1.002-1.036)
[2019-12-29 10:25] LABS: Bilirubin Negative (Negative); Blood, Urine Moderate (Negative); Clarity Clear (Clear); Glucose, Urine (Dipstick) Negative (Negative); Ketone, Urine Negative (Negative); Leukocyte Negative (Negative); Nitrite Negative (Negative); Pregu Control Background? CLEAR/WHITE (CLR/WHITE); Pregu Control Bar Appear? YES (CONTROL BAR); Protein, Urine (Dipstick) Negative (Neg-Trace); Urobilinogen 0.2 mg/dL (Less than 2)
[2019-12-29 10:26] LABS: Specific Gravity, Urine 1.024 (1.002-1.036)
[2019-12-29 10:30] LABS: Bacteria/HPF Rare-Few HPF (None Seen); Squamous Epithelial 0-3 HPF (0-3); WBC/HPF 0-3 HPF (0-3)
[2019-12-29 10:30] LABS: INR-International Normal Ratio 1.1; Prothrombin Time 14.1 sec (12.0-14.7)
[2019-12-29 14:16] VITALS: BMI 34.9
[2019-12-29] MEDS ORDERED: Ondansetron ODT 4 MG TAB PO PRN (15:16)
[2019-12-29] MEDS ORDERED: Acetaminophen 650 MG Suppository PR PRN (15:16)
[2019-12-29] MEDS ORDERED: HYDROcodone/Acetaminophen 5/325 mg Tablet PO PRN ×2 (15:16)
[2019-12-29] MEDS ORDERED: Acetaminophen 325 MG TAB PO PRN (15:16)
[2019-12-29] MEDS ORDERED: Ondansetron PF 4 MG/2 ML Vial SLOW IVP PRN (15:16)
[2019-12-29] MEDS ORDERED: Senokot S 8.6-50 MG TAB PO PRN (15:17)
--- NOTE | 2019-12-30 04:28 | HP ---
REASON FOR ADMISSION: Acute blood-loss anemia. HISTORY OF PRESENT ILLNESS: The patient is a 24-year-old -[place] female, who presented to the emergency room due to irregular vaginal bleeding. The patient states she has been on her period for over 10 days with heavy bleeding. She complains of dizziness and lightheadedness. She denies any fever. She states her last normal period was in September and she has an irregularly long period in October for 16 days and it stopped 5 days and then restarted back in November and she has been subsequently bleeding heavily again for the past 10 days. The patient states she had a similar episode in about a year ago, where she also required a transfusion. She states she was seen by an [facility]PECT[facility] after that, but never had a plan of care. In the emergency room, the patient was noted to have a hemoglobin of 7.2 and hematocrit of 26.3. Microcytosis and hypochromia were also noted. test was negative. Decision was made to transfuse the patient 2 units of PRBC and subsequently transfer as an outpatient to an [facility]. Upon evaluation of the patient, she is on the floor. She states she was feeling a little bit better. She was able to rest and she had already received 1 unit of PRBC. She states she could tell the difference already. The patient unfortunately states she has been going through this for almost 2 years now and has not been able to get appropriate care with an [facility] INSPECTOR. She denies any chest pain, fevers, palpitation, or shortness of breath. PAST MEDICAL HISTORY: Menorrhagia with history of blood transfusion. PAST SURGICAL HISTORY: No surgical history. SOCIAL HISTORY: The patient drinks socially, maybe twice a month. She denies IV drug use. She denies tobacco use. She lives at home alone. ALLERGIES: NO KNOWN DRUG ALLERGIES. CURRENT MEDICATION: None. REVIEW OF SYSTEMS: GENERAL: The patient complains of weakness and lightheadedness. CARDIOVASCULAR: Denies any chest pain, shortness of breath, or palpitation. RESPIRATORY: Denies any cough. HEENT: Denies any eye pain, sores or lesions in her mouth. ABDOMEN: The patient denies any nausea, or vomiting. The patient complains of pelvic pain. GENITOURINARY: The patient complains of irregular every periods for the past 10 days. SKIN: The patient denies any rashes or easy bruising. EXTREMITIES: The patient denies any musculoskeletal swelling or pain. PSYCHOLOGICAL: The patient denies any depression, confusion, or hallucination. LABORATORY DATA: WBC 6.6, hemoglobin 7.2, hematocrit 26.3, and platelets 385. PT 14.1, INR 1.1. Sodium 135, potassium 3.5, chloride 109, carbon dioxide 22, BUN 10, and creatinine 0.76. Urine, moderate blood, negative leukocyte, and negative nitrites. Urine test negative. PHYSICAL EXAMINATION: VITAL SIGNS: Temperature 98.5, pulse 96, respirations 18, O2 saturation 99% on room air, and blood pressure 117/73. GENERAL: The patient is alert, awake, and oriented x3. Sitting up in bed, in no apparent distress. HEENT: Normocephalic and atraumatic. Moist oral mucous membrane. Extraocular muscles intact. NECK: Supple. No JVD. CARDIOVASCULAR: S1 and S2. No murmurs. No gallops. RESPIRATORY: Clear to auscultation bilaterally. ABDOMEN: Positive bowel sounds bilaterally. Soft, nontender, and nondistended. No guarding. No rebound. EXTREMITIES: No edema. No swelling or erythema to extremities. SKIN: Good skin turgor. No rashes or bruising. NEUROLOGICAL: Cranial nerves 2 through 12 grossly intact. ASSESSMENT: 1. Acute blood loss anemia. 2. Menometrorrhagia. PLAN: The patient is a 24-year-old -[place] female with a history of irregular menstrual period. The patient will be admitted to observation at [facility] in [place]. We will transfuse the patient with 2 units of PRBC. We will get a repeat H and H in the a.m. The patient will be started on medroxyprogesterone 10 mg for 10 days to stop her menstrual period and then subsequently started on oral control and referral to an [facility] INS[facility] as an outpatient. The patient is a full code. Job ID: [id number] MTDD
[2019-12-30 06:34] LABS: #Basophils 0.1 thou/uL (0.0-0.2); #Eosinphils 0.1 thou/uL (0.0-0.7); #Lymphocytes 2.3 thou/uL (1.20-3.40); #Monocytes 0.7 thou/uL (0.11-0.59); #Neutrophils 5.2 thou/uL (1.40-6.50); %Basophils 0.6 % (0.0-1.0); %Eosinophils 1.3 % (0.0-10.0); %Lymphocytes 27.8 % (21.0-51.0); %Monocytes 8.3 % (0.0-10.0); %Neutrophils 61.9 % (42.0-75.0); Hemoglobin 9.3 g/dL (12.0-16.0); Mean Corpuscular HGB CONC 28.5 g/dL (32.0-36.0); Mean Corpuscular Hemoglobin 18.4 pg (27.0-31.0); Mean Corpuscular Volume 64.5 fL (78.0-98.0); Mean Platelet Volume 6.3 fL (7.4-10.4); Platelet Count 348 thou/uL (130-400); RBC Distribution Width 21.9 % (11.5-14.5); Red Blood Cell (RBC) Count 5.01 mill/uL (4.20-5.40)
[2019-12-30 07:03] LABS: Anisocytosis SLIGHT = 6-15 cells (100X) (0-5/hpf); Hypochromia SLIGHT = 6-15 cells (100X) (0-5/hpf); Platelet Morphology Comment Appears Adequate
[2019-12-30 07:47] VITALS: BP 109/72; TEMP 98
[2019-12-30] MEDS ORDERED: medroxyPROGESTERone Acetate 2.5 MG TAB PO SCH (12:00)
== END 2019-12-30 11:00 | disposition home or self-care (01) ==
LOC: MADERS 09:00 → MADMS 13:00
PROVIDERS: ADMIT Family Medicine; ATTEND Family Medicine
DX: D64.9 Anemia, unspecified (principal); N92.6 Irregular menstruation, unspecified
CPT/HCPCS: 36415; 36430; 80053; 81003; 81015; 81025; 85025; 85610; 86850; 86900; 86901; 99285; G0378; P9016

== ENCOUNTER 2020-04-10 10:50 | Emergency (ER) | payer BC, OTHER, SELFPAY ==
[2020-04-10] MEDS ORDERED: Dexamethasone 4 mg/ml Vial ONE (11:26)
[2020-04-10] MEDS ORDERED: AMOXicillin 250 MG CAP ONE (11:26)
[2020-04-10] MEDS ORDERED: Dexamethasone 4 MG TAB ONE (11:27)
[2020-04-10] MEDS ORDERED: Acetaminophen 500 MG TAB ONE (11:27)
== END 2020-04-10 11:33 | disposition home or self-care (01) ==
LOC: MADERS 10:50
DX: J02.0 Streptococcal pharyngitis (principal); D50.0 Iron deficiency anemia secondary to blood loss (chronic)
CPT/HCPCS: 99282; J1100; J8540

== ENCOUNTER 2020-04-27 14:40 | Emergency (ER) | payer SELFPAY | END 2020-04-27 16:34 | disposition left against medical advice (07) | LOC: MADERS 14:40 | DX: Z53.21 Procedure and treatment not carried out due to patient leaving prior to being seen by health care provider (principal) ==

== ENCOUNTER 2020-08-30 13:38 | Emergency (ER) | payer OTHER, BC ==
[2020-08-30] MEDS ORDERED: Sodium Chloride 0.9% 2,000 ML ONE (15:14)
[2020-08-30] MEDS ORDERED: Metoclopramide HCl 10 MG/2 ML VIAL ONE (15:14)
[2020-08-30 16:00] LABS: ALT (SGPT) 13 U/L (8-55); AST (SGOT) 14 U/L (5-34); Albumin 3.7 g/dL (3.5-5.0); Alkaline Phosphatase 76 U/L (40-110); Anion Gap 15 mmol/L (10-20); BUN (Urea Nitrogen) Less than 4 mg/dL (7.0-18.7); Bilirubin, Total 0.4 mg/dL (0.2-1.2); Calc. Creatinine Clearance 0 mL/min (70-130); Calcium 8.9 mg/dL (7.8-10.44); Carbon Dioxide 20 mmol/L (22-29); Chloride 106 mmol/L (98-107); Globulin 3.7 g/dL (2.4-3.5); Glucose 85 mg/dL (70-105); Potassium 3.5 mmol/L (3.5-5.1); Protein, Total 7.4 g/dL (6.0-8.3); Sodium 137 mmol/L (136-145)
[2020-08-30 16:16] LABS: #Eosinphils 0.1 thou/uL (0.0-0.7); #Lymphocytes 1.1 thou/uL (1.20-3.40); #Monocytes 0.7 thou/uL (0.11-0.59); #Neutrophils 7.4 thou/uL (1.40-6.50); %Basophils 0.4 % (0.0-1.0); %Eosinophils 0.7 % (0.0-10.0); %Lymphocytes 11.5 % (21.0-51.0); %Monocytes 7.6 % (0.0-10.0); %Neutrophils 79.9 % (42.0-75.0); Hemoglobin 11.1 g/dL (12.0-16.0); Mean Corpuscular HGB CONC 29.3 g/dL (32.0-36.0); Mean Corpuscular Hemoglobin 21.4 pg (27.0-31.0); Mean Corpuscular Volume 73.2 fL (78.0-98.0); Mean Platelet Volume 8.7 fL (7.4-10.4); Platelet Count 311 thou/uL (130-400); RBC Distribution Width 16.9 % (11.5-14.5); Red Blood Cell (RBC) Count 5.17 mill/uL (4.20-5.40); White Blood Cell (WBC) Count 9.3 thou/uL (4.8-10.8)
[2020-08-30 16:27] LABS: Anisocytosis SLIGHT = 6-15 cells (100X) (0-5/hpf); Microcytosis SLIGHT = 6-15 cells (100X) (0-5/hpf); Platelet Morphology Comment Appears Adequate
[2020-08-30 17:45] LABS: Bilirubin Small (Negative); Blood, Urine Negative (Negative); Clarity Cloudy (Clear); Glucose, Urine (Dipstick) Negative (Negative); Ketone, Urine 80 mg/dL (Negative); Leukocyte Negative (Negative); Nitrite Negative (Negative); Protein, Urine (Dipstick) 30 mg/dL (Neg-Trace)
[2020-08-30 17:50] LABS: Specific Gravity, Urine 1.029 (1.002-1.036)
[2020-08-30 17:53] LABS: RBC/HPF 0-3 HPF (0-3); WBC/HPF 0-3 HPF (0-3)
[2020-08-30 17:54] LABS: Bacteria/HPF 3+ HPF (None Seen)
[2020-08-31 02:13] LABS: SARS-CoV-2 PCR by NAA Not Detected (NotDetected)
== END 2020-08-30 19:00 | disposition left against medical advice (07) ==
LOC: MADERS 13:38
DX: O99.511 Diseases of the respiratory system complicating pregnancy, first trimester (principal); J06.9 Acute upper respiratory infection, unspecified; O99.891 Other specified diseases and conditions complicating pregnancy; R53.1 Weakness; R00.0 Tachycardia, unspecified; O21.9 Vomiting of pregnancy, unspecified; O99.281 Endocrine, nutritional and metabolic diseases complicating pregnancy, first trimester; E86.0 Dehydration; O99.011 Anemia complicating pregnancy, first trimester; Z20.822 Contact with and (suspected) exposure to COVID-19; Z3A.13 13 weeks gestation of pregnancy; Z87.42 Personal history of other diseases of the female genital tract
CPT/HCPCS: 80053; 81003; 81015; 83605; 84702; 85025; 87635; 96374; J2765; J7050; U0003; U0005

== ENCOUNTER 2020-11-14 10:18 | Emergency (ER) | payer OTHER | END 2020-11-14 11:10 | disposition left against medical advice (07) | LOC: MADERS 10:18 | DX: O21.9 Vomiting of pregnancy, unspecified (principal); O99.892 Other specified diseases and conditions complicating childbirth; O99.012 Anemia complicating pregnancy, second trimester; R00.0 Tachycardia, unspecified; Z3A.23 23 weeks gestation of pregnancy | CPT/HCPCS: 99284 ==

== ENCOUNTER 2020-11-18 20:24 | Emergency (ER) | payer OTHER | END 2020-11-18 20:40 | disposition left against medical advice (07) | LOC: MADERS 20:24 | DX: Z53.21 Procedure and treatment not carried out due to patient leaving prior to being seen by health care provider (principal) ==